=== PATIENT | female | born 1960 | race American Indian/Alaskan Native ===

== ENCOUNTER 2016-05-12 09:59 | Outpatient (CLI) | payer MEDICAID ==
--- NOTE | 2016-05-12 12:44 | Ultrasound Report ---
Complete abdominal ultrasound: Left upper quadrant tender mass. Images of the liver, spleen, and gallbladder are echogenically unremarkable. The CBD diameter is 2.1 mm. The pancreas is poorly visualized. The diameter of the proximal abdominal aorta is 2.4 cm. The right renal length is 10.4 cm and the left renal length is 10.9 cm. Both kidneys are echogenically unremarkable. Imaging over the area of the patient's concern fails to identify any mass. There is gas and shadowing. Impression: No pathology identified.
== END 2016-05-12 10:00 | disposition home or self-care (01) ==
LOC: US 09:59
PROVIDERS: ATTEND Internal Medicine
DX: R19.02 Left upper quadrant abdominal swelling, mass and lump (principal)
CPT/HCPCS: 76700